=== PATIENT | male | born 1995 | race African-American/Black ===

== ENCOUNTER 2017-07-05 09:22 | Emergency (ER) | payer OTHER ==
[~2017-07-05] VITALS: Ht 198.1 cm; Wt 100.0 kg
[~2017-07-05 09:22] MED LIST: LIB10 PO
[2017-07-05] MEDS ORDERED: QUET200T PO (09:26)
[2017-07-05] MEDS ORDERED: LORazepam 2 MG TABLET PO ONE (10:45)
[2017-07-05 11:30] VITALS: BP 129/73
== END 2017-07-05 11:35 | disposition home or self-care (01) ==
LOC: EMS 09:23
DX: F10.239 Alcohol dependence with withdrawal, unspecified (principal); F12.90 Cannabis use, unspecified, uncomplicated; F17.210 Nicotine dependence, cigarettes, uncomplicated; Y90.9 Presence of alcohol in blood, level not specified
CPT/HCPCS: 99283

== ENCOUNTER 2017-10-08 11:53 | Emergency (ER) | payer OTHER ==
[~2017-10-08] VITALS: Ht 200.7 cm; Wt 95.5 kg
[~2017-10-08 11:53] MED LIST changes: +QUET200T PO
[2017-10-08 13:28] VITALS: BP 132/88
== END 2017-10-08 13:49 | disposition home or self-care (01) ==
LOC: EMS 11:54
DX: F41.9 Anxiety disorder, unspecified (principal); F17.210 Nicotine dependence, cigarettes, uncomplicated; F12.90 Cannabis use, unspecified, uncomplicated; F19.10 Other psychoactive substance abuse, uncomplicated; Z76.0 Encounter for issue of repeat prescription
CPT/HCPCS: 99284; 99406

== ENCOUNTER 2017-11-24 16:08 | Emergency (ER) | payer OTHER ==
[~2017-11-24] VITALS: Ht 185.4 cm; Wt 84.1 kg
[2017-11-24 16:22] LABS: GLUCOSE,POINT OF CARE 121 MG/DL (70-110)
[2017-11-24] MEDS ORDERED: INSNOV SQ (16:31)
[2017-11-24 17:09] LABS: BASOPHILS % (AUTO) 1.1 % (0.0-2.0); EOSINOPHILS % (AUTO) 0.9 % (1.0-6.0); HEMATOCRIT 41.3 % (41-53); HEMOGLOBIN 14.1 g/dL (13.5-17.5); LYMPHOCYTES # (AUTO) 1.4 K/uL (1.0-4.8); LYMPHOCYTES % (AUTO) 26.9 % (22.0-44.0); MEAN CORPUSCULAR HEMOGLOBIN 32.3 pg (26.0-34.0); MEAN CORPUSCULAR HGB CONC 34.2 G/dL (31.0-37.0); MEAN CORPUSCULAR VOLUME 94 fL (80-100); MONOCYTES # (AUTO) 0.3 K/uL (0.1-1.0); MONOCYTES % (AUTO) 6.3 % (2.0-9.0); NEUTROPHILS # (AUTO) 3.4 K/uL (1.8-7.7); NEUTROPHILS % (AUTO) 64.8 % (40.0-70.0); PLATELET COUNT (AUTO) 368 K/uL (150-450); RED BLOOD CELL COUNT(AUTO) 4.38 MIL/uL (4.50-5.90)
[2017-11-24 17:20] LABS: ANION GAP 9 mmol/L (8-16); CALCIUM, TOTAL 8.9 mg/dL (8.8-10.5); CARBON DIOXIDE 28 mmol/L (22-29); CHLORIDE 102 mmol/L (98-107); CREATININE 0.87 mg/dL (0.60-1.30); GLOMERULAR FILTR. RATE CALC > 60 mL/min (>60); GLUCOSE,RANDOM 116 mg/dL (70-110); SODIUM SERUM 139 mmol/L (136-145); UREA NITROGEN, BLOOD 16 mg/dL (7-18)
[2017-11-24 17:26] LABS: ALANINE AMINOTRANSFERASE 142 U/L (12-78); ALBUMIN 3.6 g/dL (3.4-5.0); ALKALINE PHOSPHATASE 140 U/L (46-116); ASPARTATE AMINOTRANSFERASE 102 U/L (15-37); BILIRUBIN,TOTAL 0.5 mg/dL (0.1-1.0)
[2017-11-24 21:02] VITALS: BP 115/72
== END 2017-11-24 21:06 | disposition home or self-care (01) ==
LOC: EMS 16:09
DX: F10.239 Alcohol dependence with withdrawal, unspecified (principal); F17.210 Nicotine dependence, cigarettes, uncomplicated; F12.90 Cannabis use, unspecified, uncomplicated; Y90.8 Blood alcohol level of 240 mg/100 ml or more
CPT/HCPCS: 80053; 82948; 82962; 85025; 99291; G0480

== ENCOUNTER 2017-12-07 10:21 | Emergency (ER) | payer OTHER ==
[~2017-12-07] VITALS: Ht 198.1 cm; Wt 97.7 kg
[~2017-12-07 10:21] MED LIST changes: +INSNOV SQ
[2017-12-07] MEDS ORDERED: SERT100T12 PO (10:37)
[2017-12-07 11:48] VITALS: BP 127/77
== END 2017-12-07 11:59 | disposition home or self-care (01) ==
LOC: EMS 10:22
DX: F41.9 Anxiety disorder, unspecified (principal); F17.210 Nicotine dependence, cigarettes, uncomplicated; F12.90 Cannabis use, unspecified, uncomplicated; Z76.0 Encounter for issue of repeat prescription
CPT/HCPCS: 99283; 99406

== ENCOUNTER 2020-03-05 23:42 | Inpatient (IN) | payer MEDICAID, OTHER ==
[~2020-03-05] VITALS: Ht 190.5 cm; Wt 86.4 kg
[~2020-03-05 23:42] MED LIST changes: -INSNOV SQ; -LIB10 PO; +SERT100T12 PO
[2020-03-06] MEDS ORDERED: LORazepam 2 MG/ML VIAL IM ONE (00:30)
[2020-03-06] MEDS ORDERED: DiphenhydrAMINE HCL 50 MG/ML VIAL IM ONE (00:30)
[2020-03-06] MEDS ORDERED: HALOPERIDOL LACTATE 5 MG/ML VIAL IM ONE (00:30)
[2020-03-06] MEDS ORDERED: ZOLPIDEM TARTRATE 10 MG TABLET PO PRN (01:15)
[2020-03-06] MEDS ORDERED: HALOPERIDOL 5 MG TABLET PO PRN (01:15)
[2020-03-06 04:02] VITALS: BP 120/77
[2020-03-06] MEDS ORDERED: IBUPROFEN 400 MG TABLET PO PRN (09:15)
[2020-03-06] MEDS ORDERED: DOCUSATE SODIUM 100 MG CAPSULE PO PRN (09:15)
[2020-03-06] MEDS ORDERED: LOPERAMIDE HCL 2 MG CAPSULE PO PRN (09:15)
[2020-03-06] MEDS ORDERED: NICOTINE 14 MG/24 HOUR PATCH TD PRN (09:15)
[2020-03-06] MEDS ORDERED: MAG HYDROX/AL HYDROX/SIMETH ES 30 ML SUSPENSION UDCUP PO PRN (09:15)
[2020-03-06] MEDS ORDERED: ACETAMINOPHEN 325 MG TABLET PO PRN (09:15)
[2020-03-06] MEDS ORDERED: MAGNESIUM HYDROXIDE SUSPENSION 30 ML UDCUP PO PRN (09:15)
[2020-03-06] MEDS ORDERED: ALBUTEROL SULFATE HFA 90 MCG/PUFF 8 GM INHALER IH PRN (09:15)
[2020-03-06] MEDS ORDERED: CloNIDine HCL 0.1 MG TABLET PO PRN (09:15)
[2020-03-06] MEDS ORDERED: ONDANSETRON HCL 4 MG TABLET PO PRN (09:15)
[2020-03-06] MEDS ORDERED: GuaiFENesin/D-METHORPHAN [SUGAR-FREE] 200-20MG/10 ML SYRUP UDCUP PO PRN (09:15)
[2020-03-06] MEDS ORDERED: PETROLATUM,WHITE 28 GM JELLY TP PRN (09:15)
[2020-03-06] MEDS: OLANZapine 10 MG TABLET PO SCH ×2 (14:08→17:54)
[2020-03-06] MEDS: LORazepam 2 MG TABLET PO PRN (14:08)
[2020-03-07 05:58] VITALS: BP 117/72
[2020-03-07 07:27] LABS: BASOPHILS % (AUTO) 0.3 % (0.0-2.0); EOSINOPHILS % (AUTO) 3.9 % (1.0-6.0); HEMATOCRIT 45.7 % (41-53); HEMOGLOBIN 15.2 g/dL (13.5-17.5); LYMPHOCYTES # (AUTO) 1.2 K/uL (1.0-4.8); LYMPHOCYTES % (AUTO) 17.2 % (22.0-44.0); MEAN CORPUSCULAR HEMOGLOBIN 31.7 pg (26.0-34.0); MEAN CORPUSCULAR HGB CONC 33.3 G/dL (31.0-37.0); MEAN CORPUSCULAR VOLUME 95 fL (80-100); MONOCYTES # (AUTO) 0.3 K/uL (0.1-1.0); MONOCYTES % (AUTO) 4.4 % (2.0-9.0); NEUTROPHILS # (AUTO) 5.1 K/uL (1.8-7.7); NEUTROPHILS % (AUTO) 74.2 % (40.0-70.0); PLATELET COUNT (AUTO) 274 K/uL (150-450); RED BLOOD CELL COUNT(AUTO) 4.81 MIL/uL (4.50-5.90); RED CELL DISTRIBUTION WIDTH 13.6 % (11.5-14.5)
[2020-03-07 07:57] LABS: HEMOGLOBIN A1C 4.9 % (3.8-5.6)
[2020-03-07 08:00] LABS: ALANINE AMINOTRANSFERASE 52 U/L (12-78); ALBUMIN 3.5 g/dL (3.4-5.0); ALKALINE PHOSPHATASE 58 U/L (46-116); ANION GAP 7 mmol/L (8-16); ASPARTATE AMINOTRANSFERASE 36 U/L (15-37); BILIRUBIN,TOTAL 0.5 mg/dL (0.1-1.0); CALCIUM, TOTAL 9.4 mg/dL (8.8-10.5); CARBON DIOXIDE 29 mmol/L (22-29); CHLORIDE 104 mmol/L (98-107); CHOL/HDL RATIO 3.2 (4.2-7.3); CHOLESTEROL 150 mg/dL (131-200); CREATININE 0.98 mg/dL (0.60-1.30); FREE T4 (FREE THYROXINE) 1.28 ng/dL (0.76-1.46); GLOMERULAR FILTR. RATE CALC > 60 mL/min (>60); GLUCOSE,RANDOM 173 mg/dL (70-110); HDL CHOLESTEROL 47 mg/dL (40-60); LDL CHOL (CALC.) 81 mg/dL (0-130); SODIUM SERUM 140 mmol/L (136-145); THYROID STIMULATING HORMONE 1.67 uIU/mL (0.36-3.74); TOTAL PROTEIN, SERUM 7.2 g/dL (6.4-8.2); TRIGLYCERIDES 109 mg/dL (15-150); UREA NITROGEN, BLOOD 16 mg/dL (7-18)
[2020-03-07] MEDS: OLANZapine 10 MG TABLET PO SCH ×2 (08:01→16:42)
[2020-03-07 08:19] VITALS: BP 117/50
[2020-03-07 16:11] VITALS: BP 127/68
[2020-03-07] MEDS: LORazepam 2 MG TABLET PO PRN (16:42)
[2020-03-08 05:00] VITALS: BP 118/71
[2020-03-08 08:03] VITALS: BP 115/59
[2020-03-08] MEDS: OLANZapine 10 MG TABLET PO SCH ×2 (08:35→16:31)
[2020-03-08 16:10] VITALS: BP 116/58
[2020-03-08] MEDS: LORazepam 2 MG TABLET PO PRN (16:31)
[2020-03-09 05:31] VITALS: BP 107/67
[2020-03-09 08:12] VITALS: BP 131/83
[2020-03-09] MEDS: OLANZapine 10 MG TABLET PO SCH (08:35)
[2020-03-09] MEDS ORDERED: OLAN10TA3 PO (11:56)
== END 2020-03-09 13:25 | disposition home or self-care (01) | DRG 885 ==
LOC: EMS 23:42 → B3A 03-06 01:04
PROVIDERS: ADMIT Psychiatry & Neurology Psychiatry; ATTEND Psychiatry & Neurology Psychiatry
DX: F20.0 Paranoid schizophrenia (principal); F10.10 Alcohol abuse, uncomplicated; F41.9 Anxiety disorder, unspecified; K59.00 Constipation, unspecified; F17.210 Nicotine dependence, cigarettes, uncomplicated; F12.10 Cannabis abuse, uncomplicated; G47.00 Insomnia, unspecified; F19.10 Other psychoactive substance abuse, uncomplicated; R74.0 Nonspecific elevation of levels of transaminase and lactic acid dehydrogenase [LDH]; Z59.0 Homelessness; Z79.899 Other long term (current) drug therapy; Z71.41 Alcohol abuse counseling and surveillance of alcoholic; Z71.51 Drug abuse counseling and surveillance of drug abuser
CPT/HCPCS: 83036; 84439; 84443; J1200; J1630; J2060

== ENCOUNTER 2020-03-12 22:28 | Emergency (ER) | payer MEDICAID ==
[~2020-03-12] VITALS: Ht 182.9 cm; Wt 95.5 kg
[~2020-03-12 22:28] MED LIST changes: +OLAN10TA3 PO; -QUET200T PO; -SERT100T12 PO
[2020-03-12 22:34] VITALS: BP 130/77
== END 2020-03-13 00:34 | disposition home or self-care (01) ==
LOC: EMS 22:28
DX: F10.10 Alcohol abuse, uncomplicated (principal); R50.9 Fever, unspecified; F41.9 Anxiety disorder, unspecified; F12.90 Cannabis use, unspecified, uncomplicated; F19.90 Other psychoactive substance use, unspecified, uncomplicated
CPT/HCPCS: Z7502